=== PATIENT | male | born 1980 | race Caucasian/White ===

== ENCOUNTER 2017-03-29 15:05 | Emergency (ER) | payer MEDICAID ==
[~2017-03-29] VITALS: Ht 188 cm; Wt 90.7 kg
[2017-03-29 15:12] VITALS: BP_SYST 137
[2017-03-29 18:00] VITALS: BP_SYST 137
== END 2017-03-29 18:00 | disposition home or self-care (01) ==
LOC: SED 15:05
DX: H10.9 Unspecified conjunctivitis (principal); G43.909 Migraine, unspecified, not intractable, without status migrainosus; F17.200 Nicotine dependence, unspecified, uncomplicated
CPT/HCPCS: 99283